=== PATIENT | male | born 1965 | race Caucasian/White ===

== ENCOUNTER → 2016-12-06 | Outpatient (CLI) | payer OTHER ==
[~2016-12-06] MED LIST: AMBIEN CR12.5 MG PO; AMLODIPINE BESY10 MG PO; ANALGESIC325 MG PO; ASPIR-LOW81 MG PO; BENADRYL25 MG PO; BUPROPION XL150 MG PO; CYMBALTA60 MG PO; DIAZEPAM5 MG PO; FENOFIBRATE160 M1 PO; FLUOXETINE HCL20 MG PO; GABAPENTIN100 MG PO; GLUCOPHAGE500 MG PO; LIPITOR40 MG PO; METHADONE10 MG PO; MIRTAZAPINE45 MG PO; MORPHINE SULFAT15 M1 PO; OXYCODONE HCL15 MG PO; OXYCODONE HCL30 MG PO; OXYCONTIN15 MG PO; PRAVACHOL; PRAVASTATIN SOD80 MG PO; PREDNISONE50 MG PO; PRINIVIL20 MG PO; SIMVASTATIN; TRIBENZOR 40-11 EAC1 PO; ZANTAC150 MG PO; ZOLPIDEM TARTRA10 MG PO; Zithromax PO
== END | disposition home or self-care (01) ==
LOC: RES 09:49
DX: J98.4 Other disorders of lung (principal)
CPT/HCPCS: 71020; 94060; 94726; 94729

== ENCOUNTER 2017-07-07 15:16 | Inpatient (IN) | payer OTHER ==
[~2017-07-07] VITALS: Ht 172.7 cm; Wt 88.0 kg
[2017-07-07 16:18] LABS: HEMATOCRIT 33.4 % (38.0-50.0); HEMOGLOBIN 11.6 G/DL (12.5-16.6); MCH 30.4 PG (29.0-34.0); MCHC 34.7 G/DL (30.0-36.0); MCV 87.4 FL (86-99); PLATELET COUNT 476 K/uL (156-360); RBC DIS.WIDTH-CV 14.6 % (11.8-14.6); RBC DIS.WIDTH-SD 47.3 % (39-53); RED BLOOD COUNT 3.82 M/uL (4.00-5.50); WHITE BLOOD COUNT 20.8 K/uL (4.1-10.2)
[2017-07-07 16:31] LABS: CHLORIDE 114 mEq/L (99-109); POTASSIUM 4.5 mEq/L (3.7-5.4); SODIUM 137 mEq/L (136-147)
[2017-07-07 16:32] LABS: GLUCOSE 128 mg/dL (70-99)
[2017-07-07 16:36] LABS: CREATININE 1.8 mg/dL (0.6-1.3); GFR ESTIMATE (CALCULATED) 42 mL/min/ (58.99-99999)
[2017-07-07 16:37] LABS: UREA NITROGEN (BUN) 17 mg/dL (9-23)
[2017-07-07 16:43] LABS: TROP-I INTERPRETATION NEGATIVE; TROPONIN-I < 0.01 ng/mL (0.0-0.30)
[2017-07-07 17:31] LABS: CARBON DIOXIDE (BICARBONATE) 16.6 MEQ/L (20-31)
[2017-07-07] MEDS ORDERED: BUSPAR15 MG PO (18:49)
[2017-07-07] MEDS ORDERED: SUBOXONE 8 MG-1 EAC2 SL ×2 (18:51)
[2017-07-07] MEDS ORDERED: NEURONTIN400 MG PO (18:52)
[2017-07-07] MEDS ORDERED: EFFEXOR XR75 MG PO (18:53)
[2017-07-07] MEDS ORDERED: VENLAFAXINE HCL75 M1 PO (18:54)
[2017-07-07] MEDS ORDERED: WELLBUTRIN XL300 MG PO (18:54)
[2017-07-07] MEDS ORDERED: SEROQUEL100 MG PO (18:55)
[2017-07-07] MEDS ORDERED: PRINIVIL20 MG PO (18:56)
[2017-07-07] MEDS ORDERED: ALDACTONE50 MG PO (18:57)
[2017-07-07] MEDS ORDERED: NORVASC10 MG PO (18:57)
[2017-07-07] MEDS ORDERED: LOW DOSE ASPIRI81 M1 PO (18:58)
[2017-07-07] MEDS ORDERED: MOTRIN800 MG PO (18:58)
[2017-07-07] MEDS ORDERED: VENTOLIN HFA18 GM IH (18:59)
[2017-07-07 20:12] LABS: CARBOXY HGB 1.8 % (0-5); METHEMOGLOBIN 1.2 % (0-1.5); PCO2 25 mm Hg (35-45); PO2 79 mm Hg (80-100)
[2017-07-07 20:13] LABS: COMMENTS - BLOOD GASES A+C+; FI02 21 %; SITE LR; pH 7.29 (7.35-7.45)
[2017-07-07] MEDS ORDERED: PAXIL40 MG PO (20:24)
[2017-07-07] MEDS ORDERED: ONCE DAILY1 EACH PO (20:25)
[2017-07-07] MEDS ORDERED: ROBAXIN750 MG PO (20:25)
[2017-07-07] MEDS ORDERED: SINEQUAN50 MG PO (20:26)
[2017-07-07 20:42] LABS: SERUM ETHYL ALCOHOL < 10 mg/dL
[2017-07-07 22:10] LABS: TOTAL PROTEIN 7.5 g/dL (6.4-8.3)
[2017-07-07 22:11] LABS: TOTAL BILIRUBIN 0.3 mg/dL (0.0-1.0)
[2017-07-07 22:12] LABS: ALKALINE PHOSPHATASE 94 IU/L (3-129)
[2017-07-07 22:15] LABS: AST (GOT) 28 IU/L (2-34); DIRECT BILIRUBIN 0.2 mg/dL (0.0-0.3)
[2017-07-07 22:16] LABS: ALT (GPT) 18 IU/L (3-49)
[2017-07-07 23:34] LABS: CHLORIDE 113 mEq/L (99-109); POTASSIUM 4.1 mEq/L (3.7-5.4); SODIUM 139 mEq/L (136-147)
[2017-07-07 23:35] LABS: GLUCOSE 172 mg/dL (70-99)
[2017-07-07 23:39] LABS: CREATININE 1.6 mg/dL (0.6-1.3); GFR ESTIMATE (CALCULATED) 48 mL/min/ (58.99-99999)
[2017-07-07 23:40] LABS: UREA NITROGEN (BUN) 15 mg/dL (9-23)
[2017-07-08] VITALS (7 sets, daily range): BP systolic 107–139; BP diastolic 55–82
[2017-07-08] MEDS ORDERED: MOTRIN800 MG PO (01:45)
[2017-07-08 05:58] LABS: HEMATOCRIT 29.7 % (38.0-50.0); HEMOGLOBIN 10.1 G/DL (12.5-16.6); MCH 29.8 PG (29.0-34.0); MCV 87.6 FL (86-99); PLATELET COUNT 492 K/uL (156-360); RBC DIS.WIDTH-CV 14.7 % (11.8-14.6); RBC DIS.WIDTH-SD 47.9 % (39-53); RED BLOOD COUNT 3.39 M/uL (4.00-5.50); WHITE BLOOD COUNT 15.8 K/uL (4.1-10.2)
[2017-07-08 09:29] LABS: CHLORIDE 115 MEQ/L (99-109); CREATININE 1.3 MG/DL (0.6-1.3); GFR ESTIMATE (CALCULATED) > 59 mL/min/ (58.99-99999); GLUCOSE 196 mg/dL (70-99); POTASSIUM 4.5 MEQ/L (3.7-5.4); SODIUM 138 MEQ/L (136-147); UREA NITROGEN (BUN) 14 mg/dL (9-23)
[2017-07-08 12:00] LABS: CARBOXY HGB 1.6 % (0-5); METHEMOGLOBIN 1.6 % (0-1.5); PCO2 29 mm Hg (35-45); PO2 68 mm Hg (80-100); pH 7.32 (7.35-7.45)
[2017-07-08 12:01] LABS: BICARBONATE 14.9 mEq/L (22-26); COMMENTS - BLOOD GASES +C; FI02 21 %; SITE RB
[2017-07-08 12:02] LABS: TOTAL RESP RATE 20 resp/min
[2017-07-09 04:21] VITALS: BP 112/66
[2017-07-09 06:43] LABS: BASOPHIL (%) 0.2 % (0-1); BASOPHIL COUNT 0.1 K/uL (0-0.1); EOSINOPHIL (%) 0 % (0-5); LYMPHOCYTE (%) 9.1 % (15-42); MONOCYTE (%) 4.2 % (3-12); MONOCYTE COUNT 1.4 K/uL (0-0.8); NEUTROPHIL (%) 83.5 % (45-76); NEUTROPHIL COUNT 27.1 K/uL (1.8-6.4); PLATELET COUNT 517 K/uL (156-360)
[2017-07-09 07:08] LABS: CHLORIDE 113 MEQ/L (99-109); CREATININE 1.4 MG/DL (0.6-1.3); GFR ESTIMATE (CALCULATED) 57 mL/min/ (58.99-99999); GLUCOSE 162 mg/dL (70-99); POTASSIUM 4.8 MEQ/L (3.7-5.4); SODIUM 137 MEQ/L (136-147); UREA NITROGEN (BUN) 16 mg/dL (9-23)
[2017-07-09 07:19] VITALS: BP 105/59
[2017-07-09 07:38] LABS: HEMATOCRIT 29.8 % (38.0-50.0); HEMOGLOBIN 10.1 G/DL (12.5-16.6); MCH 29.3 PG (29.0-34.0); MCHC 33.9 G/DL (30.0-36.0); MCV 86.4 FL (86-99); RBC DIS.WIDTH-CV 15.1 % (11.8-14.6); RBC DIS.WIDTH-SD 48.4 % (39-53); RED BLOOD COUNT 3.45 M/uL (4.00-5.50)
[2017-07-09 07:42] LABS: WHITE BLOOD COUNT 32.5 K/uL (4.1-10.2)
[2017-07-09 11:12] VITALS: BP 132/84
[2017-07-09 15:16] VITALS: BP 111/69
[2017-07-09 23:59] VITALS: BP 132/90
[2017-07-10 06:13] LABS: HEMATOCRIT 34.4 % (38.0-50.0); HEMOGLOBIN 11.7 G/DL (12.5-16.6); MCH 29.5 PG (29.0-34.0); MCV 86.6 FL (86-99); PLATELET COUNT 623 K/uL (156-360); RBC DIS.WIDTH-CV 15.4 % (11.8-14.6); RBC DIS.WIDTH-SD 48.9 % (39-53); RED BLOOD COUNT 3.97 M/uL (4.00-5.50); WHITE BLOOD COUNT 27.7 K/uL (4.1-10.2)
[2017-07-10 06:38] LABS: CHLORIDE 109 MEQ/L (99-109); CREATININE 1.5 MG/DL (0.6-1.3); GFR ESTIMATE (CALCULATED) 52 mL/min/ (58.99-99999); GLUCOSE 141 mg/dL (70-99); POTASSIUM 4.8 MEQ/L (3.7-5.4); SODIUM 140 MEQ/L (136-147); UREA NITROGEN (BUN) 18 mg/dL (9-23)
[2017-07-10 07:44] VITALS: BP 127/81
[2017-07-10] MEDS ORDERED: PREDNISONE10 MG PO (11:01)
[2017-07-10] MEDS ORDERED: DULERA 100 MCG/13 GM IH (11:01)
[2017-07-10] MEDS ORDERED: SPIRIVA RESPIMAT4 GM IH (11:01)
[2017-07-10] MEDS ORDERED: AMOXICILLIN875 MG PO (11:02)
[2017-07-10] MEDS ORDERED: DUONEB 2.5-0.5 M3 ML AEROSOL (11:07)
[2017-07-10] MEDS ORDERED: ATORVASTATIN CA40 MG PO (11:08)
== END 2017-07-10 13:02 | disposition home or self-care (01) | DRG 190 ==
LOC: EME 15:16 → 4EAST 21:10 → EDOF 21:10 → ENRESERV 21:12 → 4EAST 07-08 00:29 → ENRESERV 07-08 20:35 → 5SOUTH 07-08 22:26 → ENPENDDIS 07-10 11:38 → 5SOUTH 07-10 13:02
PROVIDERS: Hospitalist; Physician Assistant; Student in an Organized Health Care Education/Training Program
DX: J44.0 Chronic obstructive pulmonary disease with (acute) lower respiratory infection (principal); J96.01 Acute respiratory failure with hypoxia; J18.9 Pneumonia, unspecified organism; J44.1 Chronic obstructive pulmonary disease with (acute) exacerbation; N17.9 Acute kidney failure, unspecified; N18.3 Chronic kidney disease, stage 3 (moderate); F10.21 Alcohol dependence, in remission; E87.2 Acidosis; Z86.73 Personal history of transient ischemic attack (TIA), and cerebral infarction without residual deficits; G89.4 Chronic pain syndrome; F17.200 Nicotine dependence, unspecified, uncomplicated; E78.5 Hyperlipidemia, unspecified; I12.9 Hypertensive chronic kidney disease with stage 1 through stage 4 chronic kidney disease, or unspecified chronic kidney disease; Z98.1 Arthrodesis status; R73.03 Prediabetes
CPT/HCPCS: 36600; 71046; 71250; 80048; 80048 91; 80076; 81003; 82803; 83605; 83880; 84484; 85025; 85027; 87040; 87070; 87106; 87205; 93005; 94640; 94640 76; 94644; 99202; 99281; 99285; G0480; J0295; J0456; J0574; J2930; J3475; J7030; J7040; J7050; J7070

== ENCOUNTER 2017-11-06 16:44 | Inpatient (IN) | payer OTHER ==
[~2017-11-06] VITALS: Ht 172.7 cm; Wt 79.5 kg
[~2017-11-06 16:44] MED LIST changes: -BENTYL20 MG PO; -CIPROFLOXACIN500 M1 PO; -FISH OIL 1,2001 EAC4 PO; -METRONIDAZOLE500 MG PO; -PROTONIX40 MG PO; -ZOFRAN4 MG PO; -ZUPLENZ4 MG PO
[2017-11-06 18:17] LABS: BASOPHIL (%) 0.5 % (0-1); BASOPHIL COUNT 0.1 K/uL (0-0.1); EOSINOPHIL (%) 0.8 % (0-5); EOSINOPHIL COUNT 0.1 K/uL (0-0.3); HEMATOCRIT 36.7 % (38.0-50.0); IMMATURE GRANULOCYTE (%) 0.5 % (0.0-0.7); LYMPHOCYTE (%) 23.3 % (15-42); MCH 29.5 PG (29.0-34.0); MCHC 35.4 G/DL (30.0-36.0); MCV 83.4 FL (86-99); MONOCYTE (%) 5.9 % (3-12); MONOCYTE COUNT 0.8 K/uL (0-0.8); NEUTROPHIL COUNT 8.9 K/uL (1.8-6.4); PLATELET COUNT 434 K/uL (156-360); RBC DIS.WIDTH-CV 13.8 % (11.8-14.6); RBC DIS.WIDTH-SD 42.3 % (39-53); WHITE BLOOD COUNT 12.9 K/uL (4.1-10.2)
[2017-11-06 18:27] LABS: ALBUMIN 4.1 g/dL (3.2-4.8); CHLORIDE 102 mEq/L (99-109); POTASSIUM 4.1 mEq/L (3.7-5.4); SODIUM 129 mEq/L (136-147)
[2017-11-06 18:29] LABS: GLUCOSE 101 mg/dL (70-99)
[2017-11-06 18:30] LABS: TOTAL PROTEIN 6.6 g/dL (6.4-8.3)
[2017-11-06 18:31] LABS: TOTAL BILIRUBIN 1.7 mg/dL (0.0-1.0)
[2017-11-06 18:33] LABS: ALKALINE PHOSPHATASE 301 IU/L (3-129); CREATININE 1.7 mg/dL (0.6-1.3); GFR ESTIMATE (CALCULATED) 45 mL/min/ (58.99-99999)
[2017-11-06 18:34] LABS: UREA NITROGEN (BUN) 16 mg/dL (9-23)
[2017-11-06 18:35] LABS: AST (GOT) 428 IU/L (2-34)
[2017-11-06 18:36] LABS: ALT (GPT) 894 IU/L (3-49); LIPASE 315 U/L (1.0-51.0)
[2017-11-06] MEDS ORDERED: LIPITOR40 MG PO (19:12)
[2017-11-06] MEDS ORDERED: DUONEB 2.5-0.5 M3 ML AEROSOL (19:14)
[2017-11-06] MEDS ORDERED: PREDNISONE10 MG PO (19:16)
[2017-11-06] MEDS ORDERED: MOTRIN800 MG PO (19:17)
[2017-11-06] MEDS ORDERED: ZUPLENZ4 MG PO (19:18)
[2017-11-06] MEDS ORDERED: ZOFRAN4 MG PO (19:19)
[2017-11-06] MEDS ORDERED: FISH OIL 1,2001 EAC4 PO (19:19)
[2017-11-06 22:44] VITALS: BP 150/92
[2017-11-07 06:38] LABS: BASOPHIL (%) 0.9 % (0-1); BASOPHIL COUNT 0.1 K/uL (0-0.1); EOSINOPHIL (%) 1.6 % (0-5); EOSINOPHIL COUNT 0.2 K/uL (0-0.3); HEMATOCRIT 32.6 % (38.0-50.0); HEMOGLOBIN 11.1 G/DL (12.5-16.6); IMMATURE GRANULOCYTE (%) 0.4 % (0.0-0.7); LYMPHOCYTE (%) 36.7 % (15-42); LYMPHOCYTE COUNT 4.1 K/uL (1.0-2.8); MCH 28.5 PG (29.0-34.0); MCV 83.8 FL (86-99); MONOCYTE (%) 6.9 % (3-12); MONOCYTE COUNT 0.8 K/uL (0-0.8); NEUTROPHIL (%) 53.5 % (45-76); PLATELET COUNT 404 K/uL (156-360); RBC DIS.WIDTH-CV 13.9 % (11.8-14.6); RBC DIS.WIDTH-SD 43.1 % (39-53); RED BLOOD COUNT 3.89 M/uL (4.00-5.50); WHITE BLOOD COUNT 11.2 K/uL (4.1-10.2)
[2017-11-07 07:18] LABS: ALBUMIN 3.4 G/DL (3.2-4.8); ALT (GPT) 564 IU/L (3-49); CHLORIDE 106 MEQ/L (99-109); CREATININE 1.4 MG/DL (0.6-1.3); GFR ESTIMATE (CALCULATED) 57 mL/min/ (58.99-99999); GLUCOSE 84 mg/dL (70-99); POTASSIUM 4.4 MEQ/L (3.7-5.4); SODIUM 132 MEQ/L (136-147); TOTAL BILIRUBIN 1.5 MG/DL (0.0-1.0); UREA NITROGEN (BUN) 16 mg/dL (9-23)
[2017-11-07 07:19] LABS: ALKALINE PHOSPHATASE 227 IU/L (3-129); AST (GOT) 341 IU/L (2-34); LIPASE 16 U/L (1.0-51.0)
[2017-11-07 07:26] VITALS: BP 108/70
[2017-11-07 11:14] LABS: HEPATITIS C ANTIBODY REACTIVE
[2017-11-07 21:15] VITALS: BP 110/70
[2017-11-08 00:11] VITALS: BP 118/66
[2017-11-08 04:02] VITALS: BP 108/67
[2017-11-08 06:35] LABS: A/G RATIO 2.3 (1.1-1.8); ALBUMIN 3.6 G/DL (3.4-5.0); GLOBULINS 1.6 G/DL (2.3-3.5); IRON 172 MCG/DL (35-150); TOTAL PROTEIN 5.2 G/DL (6.4-8.2); TRANSFERRIN (TIBC) 220.5 mg/dL (215-380); TRANSFERRIN SATUR. 78 % (20-55)
[2017-11-08 07:31] VITALS: BP 107/59
[2017-11-08 08:45] LABS: HEMATOCRIT 31.9 % (38.0-50.0); HEMOGLOBIN 11.1 G/DL (12.5-16.6); MCH 29.1 PG (29.0-34.0); MCHC 34.8 G/DL (30.0-36.0); MCV 83.5 FL (86-99); PLATELET COUNT 422 K/uL (156-360); RBC DIS.WIDTH-CV 14.2 % (11.8-14.6); RBC DIS.WIDTH-SD 43.5 % (39-53); RED BLOOD COUNT 3.82 M/uL (4.00-5.50); WHITE BLOOD COUNT 11.3 K/uL (4.1-10.2)
[2017-11-08 09:26] LABS: ALBUMIN 3.4 G/DL (3.2-4.8); ALKALINE PHOSPHATASE 211 IU/L (3-129); ALT (GPT) 631 IU/L (3-49); AST (GOT) 360 IU/L (2-34); CHLORIDE 106 MEQ/L (99-109); CREATININE 1.3 MG/DL (0.6-1.3); FERRITIN 1321 NG/ML (22-322); GFR ESTIMATE (CALCULATED) > 59 mL/min/ (58.99-99999); POTASSIUM 3.9 MEQ/L (3.7-5.4); SODIUM 135 MEQ/L (136-147); TOTAL PROTEIN 5.2 G/DL (6.4-8.3); UREA NITROGEN (BUN) 14 mg/dL (9-23)
[2017-11-08 09:34] LABS: GLUCOSE 156 mg/dL (70-99); TOTAL BILIRUBIN 0.9 MG/DL (0.0-1.0)
[2017-11-08 10:52] VITALS: BP 124/79
[2017-11-08 15:24] VITALS: BP 128/84
[2017-11-09 00:03] VITALS: BP 130/69
[2017-11-09 03:49] VITALS: BP 128/72
[2017-11-09 06:35] LABS: HEMATOCRIT 32.8 % (38.0-50.0); HEMOGLOBIN 11.5 G/DL (12.5-16.6); MCH 29.2 PG (29.0-34.0); MCHC 35.1 G/DL (30.0-36.0); MCV 83.2 FL (86-99); PLATELET COUNT 410 K/uL (156-360); RBC DIS.WIDTH-SD 42.8 % (39-53); RED BLOOD COUNT 3.94 M/uL (4.00-5.50); WHITE BLOOD COUNT 9.2 K/uL (4.1-10.2)
[2017-11-09 07:17] LABS: ALBUMIN 3.7 G/DL (3.2-4.8); ALKALINE PHOSPHATASE 233 IU/L (3-129); AST (GOT) 360 IU/L (2-34); CHLORIDE 108 MEQ/L (99-109); CREATININE 1.2 MG/DL (0.6-1.3); GFR ESTIMATE (CALCULATED) > 59 mL/min/ (58.99-99999); GLUCOSE 98 mg/dL (70-99); POTASSIUM 3.9 MEQ/L (3.7-5.4); SODIUM 138 MEQ/L (136-147); TOTAL PROTEIN 5.6 G/DL (6.4-8.3); UREA NITROGEN (BUN) 7 mg/dL (9-23)
[2017-11-09 07:19] LABS: ALT (GPT) 639 IU/L (3-49)
[2017-11-09 08:12] VITALS: BP 144/79
[2017-11-09 08:22] LABS: FOLIC ACID (FOLATE) 18.9 NG/ML (5.0-22.0)
[2017-11-09] MEDS ORDERED: METRONIDAZOLE500 MG PO (11:25)
[2017-11-09] MEDS ORDERED: CIPROFLOXACIN500 M1 PO (11:25)
[2017-11-09] MEDS ORDERED: PROTONIX40 MG PO (11:25)
[2017-11-09] MEDS ORDERED: BENTYL20 MG PO (11:25)
[2017-11-09 12:04] LABS: HEPATITIS B SURFACE ANTIBODY Nonreactive
[2017-11-09 12:05] LABS: ANTI-HEPATITIS A VIRUS (IGM) Nonreactive
[2017-11-10 10:08] LABS: HCV RNA (LOG IU/mL) 6.74 (())
[2017-11-11 14:28] LABS: ALBUMIN 3.39 G/DL (3.6-4.9); ALPHA-1 GLOBULIN 0.24 G/DL (0.15-0.40); ALPHA-2 GLOBULIN 0.48 G/DL (0.45-0.85); BETA-GLOBULIN 0.57 G/DL (0.65-1.15); GAMMA-GLOBULIN 0.53 G/DL (0.60-1.35)
== END 2017-11-09 12:55 | disposition home or self-care (01) | DRG 392 ==
LOC: EME 16:44 → CANRESERV 17:49 → ENRESERV 17:49 → 3EAST 18:05 → EDOF 18:05 → 3EAST 21:08 → CANRESERV 21:14 → ENRESERV 21:14 → 3EAST 22:26
PROVIDERS: Emergency Medicine; Hospitalist; Internal Medicine; Specialist; Surgery
DX: R10.11 Right upper quadrant pain (principal); N17.9 Acute kidney failure, unspecified; E86.0 Dehydration; E87.1 Hypo-osmolality and hyponatremia; J44.9 Chronic obstructive pulmonary disease, unspecified; I12.9 Hypertensive chronic kidney disease with stage 1 through stage 4 chronic kidney disease, or unspecified chronic kidney disease; N18.3 Chronic kidney disease, stage 3 (moderate); F11.20 Opioid dependence, uncomplicated; R74.8 Abnormal levels of other serum enzymes; R79.89 Other specified abnormal findings of blood chemistry; E78.5 Hyperlipidemia, unspecified; R73.03 Prediabetes; F32.9 Major depressive disorder, single episode, unspecified; F41.9 Anxiety disorder, unspecified; G89.4 Chronic pain syndrome; F14.10 Cocaine abuse, uncomplicated; F10.21 Alcohol dependence, in remission; M19.90 Unspecified osteoarthritis, unspecified site; H54.61 Unqualified visual loss, right eye, normal vision left eye; F17.210 Nicotine dependence, cigarettes, uncomplicated; Z96.652 Presence of left artificial knee joint; Z79.51 Long term (current) use of inhaled steroids; Z79.82 Long term (current) use of aspirin; Z86.73 Personal history of transient ischemic attack (TIA), and cerebral infarction without residual deficits; Z87.01 Personal history of pneumonia (recurrent); Z91.5 Personal history of self-harm; Z98.1 Arthrodesis status
CPT/HCPCS: 74181; 78227; 80053; 81256 90; 82390; 82607; 82728; 82746; 83540; 83690; 84165; 84466; 85025; 85025 91; 85027; 85610; 86706; 86709; 86803; 87522 90; 93005; 94640; 94799; 99281; 99285; A9537; C9113; J1170; J1644; J2060; J2270; J2405; J2543; J2765; J2805; J3010; J7050; J7120; J7512

== ENCOUNTER → 2017-11-06 | Outpatient (CLI) | payer OTHER ==
[~2017-11-06] MED LIST changes: +ALDACTONE50 MG PO; +AMOXICILLIN875 MG PO; +ATORVASTATIN CA40 MG PO; +BENTYL20 MG PO; +BUSPAR15 MG PO; +CIPROFLOXACIN500 M1 PO; +DULERA 100 MCG/13 GM IH; +DUONEB 2.5-0.5 M3 ML AEROSOL; +EFFEXOR XR75 MG PO; +FISH OIL 1,2001 EAC4 PO; +LOW DOSE ASPIRI81 M1 PO; +METRONIDAZOLE500 MG PO; +MOTRIN800 MG PO; +NEURONTIN400 MG PO; +NORVASC10 MG PO; +ONCE DAILY1 EACH PO; +PAXIL40 MG PO; +PREDNISONE10 MG PO; +PROTONIX40 MG PO; +ROBAXIN750 MG PO; +SEROQUEL200 MG PO; +SINEQUAN50 MG PO; +SPIRIVA RESPIMAT4 GM IH; +SUBOXONE 8 MG-1 EAC2 SL; +VENLAFAXINE HCL75 M1 PO; +VENTOLIN HFA18 GM IH; +WELLBUTRIN XL300 MG PO; +ZOFRAN4 MG PO; +ZUPLENZ4 MG PO
== END | disposition home or self-care (01) ==
LOC: RAD 14:30
DX: K82.8 Other specified diseases of gallbladder (principal); K63.9 Disease of intestine, unspecified; R79.9 Abnormal finding of blood chemistry, unspecified; R68.89 Other general symptoms and signs
CPT/HCPCS: 74176